=== PATIENT | female | born 1970 | race Caucasian/White ===

== ENCOUNTER 2023-09-09 07:04 | Emergency (ER) | payer BC ==
[2023-09-09] MEDS: Ketorolac 30 MG/ML SDV IVPUSH ONE (08:06)
[2023-09-09] MEDS: Sodium Chloride 0.9% 1,000 ML IV ONE ×3 (08:06→10:43)
[2023-09-09] MEDS: Ondansetron 4 MG/2 ML SDV IVPUSH ONE (08:06)
[2023-09-09 08:19] LABS: A/G RATIO 1.3 (1-2); ALBUMIN 3.6 g/dl (3.4-5.0); ANION GAP 14.8 (5-15); BASOPHILS PERCENT AUTO 0.2 % (0.0-1.0); BILIRUBIN TOTAL 0.6 mg/dL (0.2-1.0); BUN/CREATININE RATIO 15.4 (14-18); CALCIUM 8.8 mg/dL (8.5-10.1); CREATININE 1.3 mg/dL (0.55-1.02); EOSINOPHILS PERCENT AUTO 0.2 % (0.0-6.0); EST CRCL DRUG DOSING (CG) 46.85 mL/min; HEMATOCRIT 35.4 % (37.0-47.0); HEMOGLOBIN 11.8 gm/dl (12.0-16.0); IMMATURE GRAN ABSOLUTE AUTO 0.08 K/mm3 (0.00-0.05); IMMATURE GRAN PERCENT AUTO 0.6 % (0.0-0.4); LYMPHOCYTES ABSOLUTE AUTO 0.2 K/mm3 (1.0-4.8); LYMPHOCYTES PERCENT AUTO 1.6 % (24.0-44.0); MEAN CORPUSCULAR HGB CONC 33.3 g/dl (32.0-36.0); MEAN CORPUSCULAR VOLUME 95.9 fl (83.0-99.0); MONOCYTES ABSOLUTE AUTO 0.1 K/mm3 (0.0-0.8); MONOCYTES PERCENT AUTO 0.4 % (0.0-8.0); NEUTROPHILS ABSOLUTE AUTO 12.5 K/mm3 (1.8-7.7); PLATELET COUNT,PLT 222 K/mm3 (150-400); POTASSIUM,K 3.8 mEq/L (3.5-5.1); PROTEIN TOTAL,TP 6.4 g/dl (6.4-8.2); RED BLOOD CELL COUNT 3.69 M/mm3 (4.10-5.30); WHITE BLOOD CELL COUNT,WBC 12.87 K/mm3 (3.9-11.3)
[2023-09-09] MEDS: Iopamidol 612 MG/ML 100 ML Bottle IVPUSH ONE (09:27)
[2023-09-09] MEDS: cefTRIAXone 1 GM in Sodium Chloride 0.9% 100 ML IV ONE (09:31)
[2023-09-09 09:45] LABS: APPEARANCE,URINE CLEAR (Clear); BILIRUBIN,URINE NEGATIVE (Negative); COLOR,URINE DARK YELLOW (Yellow); GLUCOSE,URINE NEGATIVE (Negative); KETONES,URINE 1+ (Negative); LEUKOCYTE ESTERASE,URINE NEGATIVE (Negative); NITRITE,URINE NEGATIVE (Negative); OCCULT BLOOD,URINE NEGATIVE (Negative); PH,URINE 7.5 (5.0-8.0); PROTEIN,URINE TRACE (Negative); UROBILINOGEN,URINE 0.2 (0.2-1.0)
[2023-09-09 10:34] LABS: WBC,URINE 0-5 /hpf (0-5)
[2023-09-09 10:35] LABS: BACTERIA,URINE RARE /hpf (FEW); EPITHELIAL CELLS,URINE 0-5 /hpf (0-5); MUCUS,URINE NOT SEEN /hpf (FEW)
[2023-09-09 10:48] LABS: LACTIC ACID 1.3 mmol/L (0.4-2.0)
[2023-09-09] MEDS: Acetaminophen 325 MG Tab PO ONE (12:39)
== END 2023-09-09 12:50 | disposition home or self-care (01) ==
LOC: JD.ED 07:04
DX: N32.9 Bladder disorder, unspecified (principal); K59.01 Slow transit constipation; Z88.5 Allergy status to narcotic agent; Z79.899 Other long term (current) drug therapy
CPT/HCPCS: 36415; 74177; 80053; 81001; 83605; 83690; 85025; 87040; 93005; 96361; 96365; 96375; 99284; A9270; J0696; J1885; J2405; J3490; J7030; Q9967; 93010